=== PATIENT | male | born 1955 | race Caucasian/White ===

== ENCOUNTER 2016-09-12 12:21 | Emergency (ER) | payer OTHER ==
[2016-09-12] MEDS ORDERED: Albuterol-Ipratrop 3 mg / 0.5 (3 ml) UD INH STA (13:08)
--- NOTE | 2016-09-12 13:17 | RAD ---
HISTORY: SOB COMPARISON: None available TECHNIQUE: Chest PA and lateral FINDINGS: LUNGS: Mild biapical pleural thickening. No focal consolidation. Please note that chest x-ray has limited sensitivity for the detection of pulmonary masses. PLEURA: No significant pleural effusion identified. No definite pneumothorax . CARDIOVASCULAR: The cardiomediastinal silhouette appears within normal limits of size. OSSEOUS STRUCTURES: No acute osseous abnormality identified. VISUALIZED UPPER ABDOMEN: Unremarkable. OTHER FINDINGS: None. IMPRESSION: No focal consolidation, significant pleural effusion, or definite pneumothorax identified.
[2016-09-12] MEDS ORDERED: Albuterol-Ipratrop 3 mg / 0.5 (3 ml) UD ONE (13:19)
--- NOTE | 2016-09-12 13:30 | C.PDOC ---
History Of Present Illness 61 year old patient presents to the ED complaining of a mild, non-productive and dry cough for the past 2 months. Patient denies fever, nausea, vomiting, or shortness of breath. Time Seen by Provider: 09/12/16 13:00 Chief Complaint (Nursing): Cough, Cold, Congestion History Per: Patient History/Exam Limitations: no limitations Onset/Duration Of Symptoms: Other (2 months) Current Symptoms Are (Timing): Still Present Sick Contacts (Context): None Associated Symptoms: Cough Ear Symptoms: Bilateral: None Severity: Mild Pain Scale Rating Of: 3 Recent travel outside of the [place]: No Past Medical History Reviewed: Historical Data, Nursing Documentation, Vital Signs Vital Signs: Last Vital Signs Temp 98.0 F 09/12/16 13:45 Pulse 85 09/12/16 13:45 Resp 16 09/12/16 13:45 BP 110/72 09/12/16 13:45 Pulse Ox 97 09/12/16 15:44 Family History: States: Unknown Family Hx - Social History Hx Alcohol Use: No Hx Substance Use: No - Immunization History Hx Tetanus Toxoid Vaccination: No Hx Influenza Vaccination: No Hx Pneumococcal Vaccination: No Review Of Systems Except As Marked, All Systems Reviewed And Found Negative. Constitutional: Negative for: Fever Respiratory: Positive for: Cough. Negative for: Shortness of Breath Gastrointestinal: Negative for: Nausea, Vomiting Physical Exam - Physical Exam Appears: Non-toxic, No Acute Distress Skin: Warm, Dry Head: Atraumatic, Normacephalic Eye(s): bilateral: Normal Inspection, EOMI Ear(s): Bilateral: Normal Nose: Normal Oral Mucosa: Moist Throat: Normal Neck: Normal ROM, Supple Chest: Symmetrical Cardiovascular: Rhythm Regular Respiratory: No Accessory Muscle Use, Wheezing (scant, forced expiratory wheeze) Back: Normal Inspection Extremity: Normal ROM Neurological/Psych: Oriented x3 Gait: Steady ED Course And Treatment O2 Sat by Pulse Oximetry: 97 (RA) Pulse Ox Interpretation: Normal - Radiology CXR: Interpreted by Me, Viewed By Me CXR Interpretation: Yes: No Acute Disease Progress Note: Plan: -Chest x-ray. -Duoneb, Prednisone. -reassess and disposition Reevaluation Time: 15:00 Reassessment Condition: Improved Medical Decision Making Medical Decision Making: mild COPD exacerbation vs chronic cough Disposition Doctor Will See Patient In The: Office Counseled Patient/Family Regarding: Studies Performed, Diagnosis - Disposition Referrals: [facility] [Outside] Burt Calderon MD [Staff Provider] - Disposition: HOME/ ROUTINE Disposition Time: 15:00 Condition: GOOD Additional Instructions: aureliano cooper Albuterol puffer- 2 puffs cada 3-4 horas Prednisona 40 mg cada alejandro por 4 elizondo mas Siempre usa el Aerochamber Spacer. Prescriptions: Albuterol HFA [Ventolin HFA 90 mcg/actuation (8 g)] 2 puff IH [id number] #1 puff Prednisone [Deltasone] 40 mg PO DAILY #8 tablet Spacer, Inhalation [Aerochamber] 1 dev IH DAILY #1 dev Instructions: COPD (Chronic Obstructive Pulmonary Disease) (ED), Allergic Rhinitis (ED) Print Language: ALBANIAN - Clinical Impression Clinical Impression: COPD (chronic obstructive pulmonary disease) - Scribe Statement The provider has reviewed the documentation as recorded by the Shelbyibmarcello Khanna Provider Attestation: All medical record entries made by the Scribe were at my direction and personally dictated by me. I have reviewed the chart and agree that the record accurately reflects my personal performance of the history, physical exam, medical decision making, and the department course for this patient. I have also personally directed, reviewed, and agree with the discharge instructions and disposition.
[2016-09-12 14:14] VITALS: BP 110/72; PULSE 85; RESP 16; TEMP 98
[2016-09-12 15:44] VITALS: O2SAT 97
== END 2016-09-12 13:46 | disposition home or self-care (01) ==
LOC: C.ER 12:21
DX: J44.9 Chronic obstructive pulmonary disease, unspecified (principal)

== ENCOUNTER 2016-09-19 08:26 | Emergency (ER) | payer OTHER ==
[2016-09-19 08:57] VITALS: RESP 18; O2SAT 100
--- NOTE | 2016-09-19 08:59 | C.PDOC ---
History Of Present Illness 61-year-old male, presents to the emergency department with complaints of persistent right bottom foot pain x4-5 months. Patient states he was evaluated by kitchen assistant, was advised need for MRI, but is unable to afford. Patient recently applied for honorio care. He is requesting MRI, or referral for where to get one. Denies trauma. Pain is localized to bottom-middle of foot, present only with weight bearing. No swelling, skin changes, or any other associated symptoms. Patient states he was given unknown medication for pain by kitchen assistant , but "didn't work" PERSIST R BOTTOM FOOT PAIN X 4-5 MONTHS. PS EVAL @ [facility], WAS ADVISED NEED FOR MRI BUT UNABLE TO AFFORD. RECENTLY APPLIED FOR HONORIO CARE. REQUESTING MRI , OR REFERRAL FOR WHERE TO GET ONE. DENIES TRAUMA. PAIN LOCALIZED BOTTOM/MIDDLE OF FOOT, PRESENT ONLY W WT BEAR. NO SWELL, SKIN CHANGES, OTHER ASSOC SX. PS WAS GIVEN UNK MED FOR PAIN BY INTERNAL CONTROL SPECIALIST BUT "DIDNT WORK". EXAM NAD NONTOXIC EXT R FOOT: ATRAUM, NO SWELL. +TEND HEAD 2-3 METATARSAL AREA. NO PALP MASS, GROSS FB. SKIN INTACT, NO FLUCTUANCE, RASH NEURO INTACT NO FOCAL DEF MDM XRAY, IBUPROFEN. ADVISED ORTHOTICS FOR AFFECTED AREA. REFER PODIATRY CLINIC Chief Complaint (Nursing): Lower Extremity Problem/Injury History Per: Patient History/Exam Limitations: no limitations Past Medical History Reviewed: Historical Data, Nursing Documentation, Vital Signs Vital Signs: Last Vital Signs Temp 98 F 09/19/16 09:37 Pulse 77 09/19/16 09:37 Resp 18 09/19/16 09:37 BP 128/66 09/19/16 09:37 Pulse Ox 100 09/19/16 14:14 Family History: States: Unknown Family Hx - Social History Hx Alcohol Use: No Hx Substance Use: No - Immunization History Hx Tetanus Toxoid Vaccination: No Hx Influenza Vaccination: No Hx Pneumococcal Vaccination: No Review Of Systems Except As Marked, All Systems Reviewed And Found Negative. Constitutional: Negative for: Fever, Chills Gastrointestinal: Negative for: Nausea, Vomiting Musculoskeletal: Positive for: Foot Pain Neurological: Negative for: Weakness, Numbness, Headache, Dizziness Physical Exam - Physical Exam Appears: Non-toxic, No Acute Distress Skin: Warm, Dry, No Rash, Other (SKIN INTACT, NO FLUCTUANCE, RASH) Head: Atraumatic, Normacephalic Eye(s): bilateral: Normal Inspection, PERRL Nose: Normal Oral Mucosa: Moist Lips: Normal Appearing Neck: Normal ROM Cardiovascular: Rhythm Regular Respiratory: Normal Breath Sounds, No Accessory Muscle Use Extremity: Other (EXT R FOOT: ATRAUM, NO SWELL. +TEND HEAD 2-3 METATARSAL AREA. NO PALP MASS, GROSS FB.) Neurological/Psych: Oriented x3, Normal Speech, Other (NEURO INTACT NO FOCAL DEF ) ED Course And Treatment O2 Sat by Pulse Oximetry: 100 Pulse Ox Interpretation: Normal - Other Rad R FOOT X-Ray: Interpreted by Me (NEG) Medical Decision Making Medical Decision Making: MDM XRAY, IBUPROFEN. ADVISED ORTHOTICS FOR AFFECTED AREA. REFER PODIATRY CLINIC Disposition Counseled Patient/Family Regarding: Studies Performed, Diagnosis, Need For Followup, Rx Given - Disposition Referrals: [facility] [Outside] [facility] [Outside] [facility] [Outside] Disposition: HOME/ ROUTINE Disposition Time: 09:10 Condition: IMPROVED Prescriptions: Ibuprofen [Motrin] 600 mg PO Q6 #30 tab Instructions: Chronic Pain (ED) - Clinical Impression Clinical Impression: Chronic foot pain - Scribe Statement The provider has reviewed the documentation as recorded by the Scribmracello Lynch All medical record entries made by the Scribe were at my direction and personally dictated by me. I have reviewed the chart and agree that the record accurately reflects my personal performance of the history, physical exam, medical decision making, and the department course for this patient. I have also personally directed, reviewed, and agree with the discharge instructions and disposition.
[2016-09-19 09:37] VITALS: BP 128/66; PULSE 77; TEMP 98
--- NOTE | 2016-09-19 11:39 | RAD ---
PROCEDURE: Right Foot Radiographs. HISTORY: Trauma. Anatomic area of interest: Not specified. COMPARISON: None. FINDINGS: BONES: Normal. No fracture. JOINTS: Normal. SOFT TISSUES: Normal. OTHER FINDINGS: None. IMPRESSION: No acute findings related to/accounting for the clinical presentation. Concordant results with the preliminary interpretation rendered by the emergency department physician procedure.
== END 2016-09-19 09:37 | disposition home or self-care (01) ==
LOC: C.ER 08:26
DX: M79.671 Pain in right foot (principal); G89.29 Other chronic pain